=== PATIENT | female | born 1990 | race Caucasian/White ===

== ENCOUNTER 2016-11-24 12:37 | Emergency (ER) | payer OTHER ==
[~2016-11-24] VITALS: Ht 165.1 cm; Wt 59.0 kg
[2016-11-24 12:43] VITALS: BP 113/64; PULSE 78; RESP 15; TEMP 97.8; O2SAT 98
[2016-11-24] MEDS ORDERED: SODIUM CHLOR 0.9% 1000 ML INJ 1,000 ML IV SCH (15:09)
[2016-11-24] MEDS ORDERED: TETANUS/DIPHTHERIA TOXOID ADULT 0.5 ML VIAL IM ONE (15:15)
[2016-11-24] MEDS ORDERED: LIDOCAINE HCL 1% 50 ML VIAL INFIL ONE (15:15)
[2016-11-24 15:29] VITALS: BP 107/62; PULSE 79; RESP 16; O2SAT 100
[2016-11-24 15:42] LABS: BASOPHIL % 0.5 % (0.0-2.0); EOSINOPHIL % 0.4 % (0.0-4.0); HEMATOCRIT 34.6 % (35.0-46.0); HEMO FLAGS DIFF FINAL; LYMPH % 16.3 % (9.0-44.0); LYMPHOCYTE # 1.5 TH/MM3 (1.0-4.8); MEAN CELL VOLUME 87.6 FL (80.0-100.0); MEAN CORPUSCULAR HEMOGLOBIN 29.8 PG (27.0-34.0); MONO % 5.3 % (0.0-8.0); NEUT % 77.5 % (16.0-70.0); PLATELET COUNT 206 TH/MM3 (150-450); RED BLOOD COUNT 3.95 MIL/MM3 (4.00-5.30); WHITE BLOOD COUNT 9.1 TH/MM3 (4.0-11.0)
[2016-11-24 16:08] LABS: BICARBONATE 27.5 MEQ/L (21.0-32.0); MAGNESIUM 1.8 MG/DL (1.5-2.5); POTASSIUM 3.9 MEQ/L (3.5-5.1)
--- NOTE | 2016-11-24 16:13 | PD ---
HPI Chief Complaint: Seizure Time Seen by Provider: 16:07 Travel History International Travel<30 days: No Contact w/Intl Traveler<30days: No Traveled to known affect area: No History of Present Illness HPI 26-year-old female that presents to the ED for evaluation of syncope versus seizure. Per patient she has a history of seizures and takes medications for it. Per patient she's been compliant with it. Per patient the last time she had a grand mal seizure was about 15 years ago. Significant other does tell me that yesterday she missed a dose of one of her medications and took 2 of her "blue pills" yesterday night as she felt that she was getting "an hour". Per patient she gets hour as frequently and per significant other she does get some seizures that appear to be partial where she shakes for a couple of minutes and then they go away. Per significant other she's always consciousness during this event and they don't last more than a minute. Unclear when his last and she had this but she's had multiple hours in the past. 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 She was shaking on the floor and didn't loss consciousness for less than a minute. Patient came back to with somewhat dizzy and weak and tired brothers and dad within normal limits. Patient did have a very superficial laceration to the left face. Patient denies any other injury. No arm or leg pain. She states that she has some bleeding on her head. She does not know her last tetanus shot. She has no allergies to medication. No chest pain or shortness of breath. No palpitations. Denies . No other medical problems. FOR[facility], [facility] Past Medical History Seizures: Yes ?: Unknown LMP: OCT 24 2016 Past Surgical History Surgical History: No Previous Surgery Social History Alcohol Use: No Tobacco Use: No Substance Use: No Allergies-Medications (Allergen,Severity, Reaction): Coded Allergies: No Known Allergies (Unverified , 11/24/16) Review of Systems General / Constitutional: No: Fever, Chills, Weight Gain, Weight Loss, Other Eyes: No: Diploplia, Blurred Vision, Photophobia, Drainage, Redness, Foreign Body Sensation, Pain, Tearing, Blind Spots, Visual changes, Blindness, Other HENT: Positive: Headaches, Lightheadedness, No: Vertigo, Sore Throat, Rhinitis , Rhinorrhea, Congestion, Nosebleed, Neck Stiffness, Neck Pain, Masses, Gingival Bleeding, Dental Difficulties, Ear Discharge, Earache, Other Cardiovascular: No: Chest Pain or Discomfort, Palpitations, Irregular Rhythm, Tachycardia, Diaphoresis, Syncope, Dyspnea on exertion, Varicosities, Edema, Cyanosis, Varicosities, Phlebitis, Claudication, Other Respiratory: No: Cough, Shortness of Breath, Wheezing, Sneezing, Orthopnea, Hemoptysis, Stridor, Night Sweats, Pleuritic Pain, Other Gastrointestinal: No: Nausea, Vomiting, Diarrhea, Abdominal Pain, Hematemesis, Hematochezia, Constipation, Changes in Bowel Habits, Indigestion, Dysphagia, Loss of Appetite, Other Genitourinary: No: Urgency, Frequency, Dysuria, Nocturia, Hematuria, Decreased Urinary Output, Oliguria, Hesitancy, Dribbling, Incontinence, Pelvic Pain, Flank Pain, Dyspareunia, Discharge, Dysmenorrhea, Menorrhagia, Metorrhagia, Vaginal Bleeding, Other Musculoskeletal: No: Myalgias, Arthralgias, Limited ROM, Weakness, Cramping, Edema, Pain, Atrophy, Other Skin: No Rash, No Itching, No Dryness, No Lumps, No Hives, No Change in Pigmentation, No Change in nails, No Alopecia, No Lesions, No Breast Lumps, No Breast Tenderness, No Breast Swelling, No Other Neurologic: Positive: Weakness, Dizziness, Syncope, Seizures, No: Focal Abnormalities, Coordination Problem, Tremor, Ataxia, Headache, Change in Mentation, Slurred Speech, Paresthesia, Incontinence, Sensory Disturbance, Other Psychiatric: No: Anxiety, Depression, Suicidal Ideations, Disorder of Thought, Mood Disorder, Substance Abuse, Homicidal Ideation, Other Endocrine: No: Heat Intolerance, Cold Intolerance, Polyuria, Polydipsia, Other Hematologic/Lymphatic: No: Easy Bruising, Lymph Node Enlargement, Other Physical Exam Narrative GENERAL: SKIN: Warm and dry. Patient has a very superficial less than half centimeter laceration to the left eyelid. HEAD: Atraumatic. Normocephalic. EYES: Pupils equal and round. No scleral icterus. No injection or drainage. ENT: No nasal bleeding or discharge. Mucous membranes pink and moist. Tongue is midline. No uvula deviation. NECK: Trachea midline. No JVD. CARDIOVASCULAR: Regular rate and rhythm. No murmurs, S3, S4. RESPIRATORY: No accessory muscle use. Clear to auscultation. Breath sounds equal bilaterally. GASTROINTESTINAL: Abdomen soft, non-tender, nondistended. Hepatic and splenic margins not palpable. MUSCULOSKELETAL: Extremities without clubbing, cyanosis, or edema. No obvious deformities. Full range of motion of the upper and lower extremities bilaterally. No lumbar, thoracic, cervical spine tenderness to palpation. Pupils pulses bilaterally. Neurovascular intact. NEUROLOGICAL: Awake and alert. No obvious cranial nerve deficits. Motor grossly within normal limits. Five out of 5 muscle strength in the arms and legs. Normal speech. PSYCHIATRIC: Appropriate mood and affect; insight and judgment normal. Data Data Last Documented VS Vital Signs Date Time Temp Pulse Resp B/P Pulse Ox O2 Delivery O2 Flow Rate FiO2 11/24/16 15:29 79 16 107/62 100 Room Air 11/24/16 12:43 97.8 Orders Electrocardiogram (11/24/16 13:04) Ed Urine Pregnancytest Poc (11/24/16 13:04) Complete Blood Count With Diff (11/24/16 13:04) Ecg Monitoring (11/24/16 13:04) Iv Access Insert/Monitor (11/24/16 13:04) Oximetry (11/24/16 13:04) Ct Brain W/O Iv Contrast(Rout) (11/24/16 15:04) Carbamazepine (Tegretol) (11/24/16 15:05) Sodium Chlor 0.9% 1000 Ml Inj (Ns 1000 M (11/24/16 15:09) Wound Care (11/24/16 15:09) Tetanus/Diphtheria Tox Adult (Tetanus/Di (11/24/16 15:15) Lidocaine 1% Inj (50 Ml) (Xylocaine 1% I (11/24/16 15:15) Basic Metabolic Panel (Bmp) (11/24/16 15:15) Magnesium (Mg) (11/24/16 15:15) Labs Laboratory Tests Test 11/24/16 15:15 White Blood Count 9.1 TH/MM3 Red Blood Count 3.95 MIL/MM3 Hemoglobin 11.8 GM/DL Hematocrit 34.6 % Mean Corpuscular Volume 87.6 FL Mean Corpuscular Hemoglobin 29.8 PG Mean Corpuscular Hemoglobin 34.0 % Concent Red Cell Distribution Width 13.0 % Platelet Count 206 TH/MM3 Mean Platelet Volume 8.0 FL Neutrophils (%) (Auto) 77.5 % Lymphocytes (%) (Auto) 16.3 % Monocytes (%) (Auto) 5.3 % Eosinophils (%) (Auto) 0.4 % Basophils (%) (Auto) 0.5 % Neutrophils # (Auto) 7.0 TH/MM3 Lymphocytes # (Auto) 1.5 TH/MM3 Monocytes # (Auto) 0.5 TH/MM3 Eosinophils # (Auto) 0.0 TH/MM3 Basophils # (Auto) 0.0 TH/MM3 CBC Comment DIFF FINAL Differential Comment Sodium Level 130 MEQ/L Potassium Level 3.9 MEQ/L Chloride Level 94 MEQ/L Carbon Dioxide Level 27.5 MEQ/L Anion Gap 9 MEQ/L Blood Urea Nitrogen 8 MG/DL Creatinine 0.72 MG/DL Estimat Glomerular Filtration 97 ML/MIN Rate Random Glucose 76 MG/DL Calcium Level 8.2 MG/DL Magnesium Level 1.8 MG/DL Carbamazepine (Tegretol) Level 13.7 MCG/ML MDM Medical Decision Making Medical Screen Exam Complete: Yes Emergency Medical Condition: Yes Medical Record Reviewed: Yes Interpretation(s) Last Impressions Head CT 11/24/16 1504 Signed Impressions: Service Date/Time: Thursday, November 24, 2016 16:19 - CONCLUSION: Normal examination. Billy Jean MD CBC & BMP Diagram 11/24/16 15:15 EKg shows sinus rhythm with no sign of ischemia or arrhythmia read by me and attending. Differential Diagnosis Head injury versus seizure versus syncope versus laceration versus normal exam versus electrolyte abnormality Narrative Course 26-year-old female that presents to the ED for evaluation of possible seizure versus syncope. Patient was properly examined and was found to have signs and symptoms consistent with appears to be seizure with possible syncope. Patient has a history of seizures. Patient did have a laceration. After explained procedure to the patient and she agreed to it laceration was repaired as stated by my attending. Labs and imaging will be done. Patient was given tetanus booster. Case was discussed with my attending Dr. Rick who went in and evaluated the patient with me and agrees with plan. Labs and imaging showed elevated carbamazepine level but no sign of other acute disease. Case was discussed in my attending who agrees the patient should discontinue her car muscle pain for 1 dose and continuous normal follow with her doctor. Patient agrees with this plan. Patient was told to rest and follow with her neurologist. See ED for any worsening symptoms. Diagnosis Primary Impression: Seizure Additional Impressions: Laceration Head injury Qualified Code: S09.90XA - Head injury, initial encounter Patient Instructions: General Instructions Additional Instructions: Wound care daily with soap and water. You can apply bandaid if needed. Neosporyn or OTC antibiotic ointment to area as needed twice a day for at least 2 weeks to help with scarring and prevent infection. Meoderma OTC for scarring if needed. Avoid sun exposure for 2 months as the sun could make scar darker and more noticeable. Get sutures removed in 5-7 days. See ED if worst. Discontinue your carbamazepine for at least 1 dose as your levels are high. Med/Other Pt SpecificInfo: No Change to Meds Disposition: 01 DISCHARGE HOME Condition: Stable Aldair Barnett Nov 24, 2016 16:13
--- NOTE | 2016-11-24 16:21 | PD ---
Data Data Last Documented VS Vital Signs Date Time Temp Pulse Resp B/P Pulse Ox O2 Delivery O2 Flow Rate FiO2 11/24/16 15:29 79 16 107/62 100 Room Air 11/24/16 12:43 97.8 Orders Electrocardiogram (11/24/16 13:04) Ed Urine Pregnancytest Poc (11/24/16 13:04) Complete Blood Count With Diff (11/24/16 13:04) Ecg Monitoring (11/24/16 13:04) Iv Access Insert/Monitor (11/24/16 13:04) Oximetry (11/24/16 13:04) Ct Brain W/O Iv Contrast(Rout) (11/24/16 15:04) Carbamazepine (Tegretol) (11/24/16 15:05) Sodium Chlor 0.9% 1000 Ml Inj (Ns 1000 M (11/24/16 15:09) Wound Care (11/24/16 15:09) Tetanus/Diphtheria Tox Adult (Tetanus/Di (11/24/16 15:15) Lidocaine 1% Inj (50 Ml) (Xylocaine 1% I (11/24/16 15:15) Basic Metabolic Panel (Bmp) (11/24/16 15:15) Magnesium (Mg) (11/24/16 15:15) Labs Laboratory Tests Test 11/24/16 15:15 White Blood Count 9.1 TH/MM3 Red Blood Count 3.95 MIL/MM3 Hemoglobin 11.8 GM/DL Hematocrit 34.6 % Mean Corpuscular Volume 87.6 FL Mean Corpuscular Hemoglobin 29.8 PG Mean Corpuscular Hemoglobin 34.0 % Concent Red Cell Distribution Width 13.0 % Platelet Count 206 TH/MM3 Mean Platelet Volume 8.0 FL Neutrophils (%) (Auto) 77.5 % Lymphocytes (%) (Auto) 16.3 % Monocytes (%) (Auto) 5.3 % Eosinophils (%) (Auto) 0.4 % Basophils (%) (Auto) 0.5 % Neutrophils # (Auto) 7.0 TH/MM3 Lymphocytes # (Auto) 1.5 TH/MM3 Monocytes # (Auto) 0.5 TH/MM3 Eosinophils # (Auto) 0.0 TH/MM3 Basophils # (Auto) 0.0 TH/MM3 CBC Comment DIFF FINAL Differential Comment Sodium Level 130 MEQ/L Potassium Level 3.9 MEQ/L Chloride Level 94 MEQ/L Carbon Dioxide Level 27.5 MEQ/L Anion Gap 9 MEQ/L Blood Urea Nitrogen 8 MG/DL Creatinine 0.72 MG/DL Estimat Glomerular Filtration 97 ML/MIN Rate Random Glucose 76 MG/DL Calcium Level 8.2 MG/DL Magnesium Level 1.8 MG/DL Carbamazepine (Tegretol) Level 13.7 MCG/ML MDM Supervised Visit with CARMENZA: Yes Narrative Course I, Dr. Vu, have reviewed the advance practice practioner's documentation and am in agreement, met with the patient face to face, made the diagnosis, and the medical decision making was done by me. *My assessment and Findings: 26-year-old female with history of seizure here with complaint of episode of altered mental status, shaking while at confucianism. Per significant other this was witnessed and described as a generalized tonic- clonic type seizure. Patient has been compliant with home antiepileptics. Last grand mal seizure was approximately 15 years ago but she gets frequent auras and partial seizures. Neurologic examination nonfocal. She has a superficial laceration over the left eyelid on exam. Differential includes seizure, arrhythmia, electrolyte abnormality and less likely ICH. Will obtain EKG, labs and head CT for hopeful disposition home. Diagnosis Primary Impression: Seizure Chiquita Vu MD Nov 24, 2016 16:21
--- NOTE | 2016-11-24 16:48 | RADRPT ---
EXAM DATE/TIME: 11/24/2016 16:19 [facility] COMPARISON: No previous studies available for comparison. INDICATIONS : Syncopal episode; left laceration. RADIATION DOSE: 56.35 CTDIvol (mGy) MEDICAL HISTORY : None SURGICAL HISTORY : None. ENCOUNTER: Initial ACUITY: 1 day PAIN SCALE: 3/10 LOCATION: cranial TECHNIQUE: Multiple contiguous axial images were obtained of the head. Using automated exposure control and adj ustment of the mA and/or kV according to patient size, radiation dose was kept as low as reasonably a chievable to obtain optimal diagnostic quality images. FINDINGS: CEREBRUM: The ventricles are normal for age. No evidence of midline shift, mass lesion, hemorrhage or acute in farction. No extra-axial fluid collections are seen. POSTERIOR FOSSA: The cerebellum and brainstem are intact. The 4th ventricle is midline. The cerebellopontine angle i s unremarkable. EXTRACRANIAL: The visualized portion of the orbits is intact. SKULL: The calvaria is intact. No evidence of skull fracture. CONCLUSION: Normal examination. Billy Jean MD on November 24, 2016 at 16:45 Board Certified Radiologist. This report was verified electronically.
--- NOTE | 2016-11-25 14:33 | EKG ---
Date Performed: 11/24/2016 Time Performed: 15:26:07 PTAGE: 26 years EKG: Sinus rhythm NORMAL ECG WARNING: DATA QUALITY MAY AFFECT INTERPRETATION NO PREVIOUS TRACING DOCTOR: Quincy [place] Interpretating Date/Time 11/25/2016 14:29:41
== END 2016-11-24 17:25 | disposition home or self-care (01) ==
LOC: NEPC 12:37
DX: R56.9 Unspecified convulsions (principal); S01.112A Laceration without foreign body of left eyelid and periocular area, initial encounter; R89.2 Abnormal level of other drugs, medicaments and biological substances in specimens from other organs, systems and tissues; R51 Headache; Z23 Encounter for immunization; W18.30XA Fall on same level, unspecified, initial encounter; Y92.22 Religious institution as the place of occurrence of the external cause; Y99.8 Other external cause status
CPT/HCPCS: 12011; 70450; 80048; 80156; 83735; 84703; 85025; 90471; 90714; 93005; 96360; 99284; J7030